=== PATIENT | female | born 1995 | race African-American/Black ===

== ENCOUNTER 2018-12-09 19:00 | Emergency (ER) | payer MEDICAID, OTHER ==
[~2018-12-09] VITALS: Ht 160 cm; Wt 73.9 kg
[2018-12-09 19:29] VITALS: BP 106/63
[2018-12-09 20:41] LABS: BILIRUBIN,URINE NEGATIVE (NEG); CLARITY,URINE CLEAR; COLOR,URINE YELLOW; NITRITE,URINE NEGATIVE (NEG); PH,URINE 6.5; PROTEIN,URINE NEGATIVE (NEG-TRACE); UROBILINOGEN,URINE 0.2 mg/dL (0.2 mg/dL)
--- NOTE | 2018-12-09 20:47 | PHYS DOC ---
Past Medical History Past Medical History: No Pertinent History Past Surgical History: No Surgical History, Smoking: Less than 1pk/day Alcohol Use: Occasionally Drug Use: Marijuana Adult General Chief Complaint Chief Complaint: VAGINAL PROBLEM HPI HPI Patient is a , 23-year-old female who presents with vaginal issues. She says that yesterday she noticed left labial was "swollen" with burning. The burning is constant and worse with tight clothing, but is not associated with urination. Denies vaginal discharge and says that the only odor is in "old period smell". Her last period ended on November. Several months ago she had BV with similar symptoms and was treated appropriately. She has a history of Chlamydia 6 years ago from the same partner she is currently sexually active with. She's had no fever, and no vaginal bleeding. Review of Systems Review of Systems Constitutional: Denies fever or chills Eyes: Denies redness or eye pain HENT: Denies nasal congestion or sore throat Respiratory: Denies cough or shortness of breath Cardiovascular: Denies chest pain or palpitations GI: Denies abdominal pain, nausea, or vomiting : Denies dysuria or hematuria Musculoskeletal: Denies back pain or joint pain Integument: Denies rash; reports labial swelling Neurologic: Denies headache, focal weakness or sensory changes Complete systems were reviewed and found to be within normal limits, except as documented in this note. Current Medications Current Medications Current Medications Medications (Trade) Dose Ordered Sig/Roxy Start Time Stop Time Status Last Admin Dose Admin Azithromycin (Zithromax) 1,000 mg 1X ONCE 12/09/18 21:15 12/09/18 21:16 DC 12/09/18 21:18 1,000 MG Ceftriaxone Sodium (Rocephin Im) 250 mg 1X ONCE 12/09/18 21:15 12/09/18 21:16 DC 12/09/18 21:18 250 MG Allergies Allergies Allergies Coded Allergies Type Severity Reaction Last Updated Verified No Known Drug Allergies 12/09/18 No Physical Exam Physical Exam Constitutional: Well developed, well nourished, no acute distress, non-toxic ap pearance HENT: Normocephalic, atraumatic, oropharynx moist Eyes: Conjunctiva normal, no discharge Neck: Normal range of motion, no tenderness, supple Cardiovascular: Heart rate normal, regular rhythm Lungs & Thorax: Bilateral breath sounds clear to auscultation, no wheezing Abdomen: Soft, no tenderness : No cervical discharge, mild swelling in left labia minora with no tenderness to palpation, cervical motion tenderness on bimanual exam. Skin: Warm, dry, no erythema, no rash Extremities: No tenderness, ROM intact, no edema Neurologic: Alert and oriented X 3, normal motor function, normal sensory function, no focal deficits noted Psychologic: Affect normal, judgement normal, mood normal Current Patient Data Vital Signs Vital Signs Date Time Temp Pulse Resp B/P (MAP) Pulse Ox O2 Delivery O2 Flow Rate FiO2 12/09/18 19:29 97.7 59 18 106/63 (77) 100 Room Air 97.7 Lab Values Laboratory Tests Test 12/09/18 20:03 Urine Color Yellow Urine Clarity Clear Urine pH 6.5 Urine Specific [place] <=1.005 Urine Protein Negative mg/dL (NEG-TRACE) Urine Glucose (UA) Negative mg/dL (NEG) Urine Ketones (Stick) Negative mg/dL (NEG) Urine Blood Negative (NEG) Urine Nitrite Negative (NEG) Urine Bilirubin Negative (NEG) Urine Urobilinogen Dipstick 0.2 mg/dL (0.2 mg/dL) Urine Leukocyte Esterase Trace (NEG) Urine RBC 0 /HPF (0-2) Urine WBC Occ /HPF (0-4) Urine Squamous Epithelial Cells Few /LPF Urine Bacteria 0 /HPF (0-FEW) Urine Mucus Slight /LPF Microbiology 12/09/18 Wet Prep - Final, Complete Microbiology 12/09/18 Wet Prep - Final, Complete EKG EKG [] Radiology/Procedures Radiology/Procedures [] Course & Med Decision Making Course & Med Decision Making Pertinent Labs studies reviewed. (See chart for details) Ms. Stevenson is a 23 year-old female who presents with vaginal issues. He noticed left labial swelling and burning. She denies any vaginal discharge, fever, vaginal bleeding or abdominal pain. Her last menstrual period ended on December 04. She has a past medical history of BV a few months ago and Chlamydia 6 years ago from the same partner she is currently sexually active with. On pelvic exam she had no discharge, but positive cervical motion tenderness. Wet mount with concern for bacterial vaginosis she was treated with metronidazole. Chlamydia and gonorrhea PCR were sent, but she was treated symptomatically with azithromycin and ceftriaxone. Patient stable for discharge with outpatient follow-up with PCP/INFORMATION RECEPTIONIST. INFORMATION RECEPTIONIST referral provided. Discussed findings and plan with patient, who acknowledges understanding and agreement. [] Dragon Disclaimer Dragon Disclaimer This electronic medical record was generated, in whole or in part, using a voice recognition dictation system. Departure Departure Impression: Primary Impression: Pelvic pain Additional Impression: Bacterial vaginitis Disposition: HOME, SELF-CARE Condition: STABLE Referrals: NO PCP (PCP) Patient Instructions: Bacterial Vaginosis, [id number], Pelvic Pain, Female, [id number] Scripts Metronidazole (FLAGYL) 500 Mg Tablet 500 MG PO BID for Vaginosis, #14 TAB Prov: OSWALDO ESCOBAR DO 12/09/18 Problem Qualifiers OSWALDO ESCOBAR DO Dec 09, 2018 20:47
[2018-12-09 20:51] LABS: BACTERIA,URINE 0 /HPF (0-FEW); RBC,URINE 0 /HPF (0-2); SQUAMOUS EPITHELIAL CELL,UR FEW /LPF; WBC,URINE OCC /HPF (0-4)
[2018-12-09] MEDS ORDERED: cefTRIAXone IM 250 MG VIAL IM ONE (21:15)
[2018-12-09] MEDS ORDERED: AZITHROMYCIN 250 MG TABLET. PO ONE (21:15)
[2018-12-09] MEDS ORDERED: METR500T PO (22:15)
[2018-12-13 00:07] LABS: GC PROBE Negative (Negative)
== END 2018-12-09 22:25 | disposition home or self-care (01) ==
LOC: ER 19:00
DX: N76.0 Acute vaginitis (principal); B96.89 Other specified bacterial agents as the cause of diseases classified elsewhere; R10.2 Pelvic and perineal pain; F17.200 Nicotine dependence, unspecified, uncomplicated
CPT/HCPCS: 81001; 87086; 87491; 87591; 96372; 99284; J0696; Q0111; Q0144